=== PATIENT | male | born 1965 | race Caucasian/White ===

== ENCOUNTER 2022-06-01 14:39 | Inpatient (IN) | payer OTHER, BC ==
[~2022-06-01] VITALS: Ht 175.3 cm; Wt 93.2 kg
[2022-06-01 15:14] LABS: BASOPHILS ABSOLUTE AUTO 0.03 K/mm3 (0.00-0.23); BASOPHILS PERCENT AUTO 0 % (0-2); EOSINOPHILS ABSOLUTE AUTO 0.07 K/mm3 (0.00-0.68); EOSINOPHILS PERCENT AUTO 1 % (0-6); Hematocrit 41.1 % (37.0-53.0); Hemoglobin 14.7 g/dL (13.5-17.5); IMMATURE GRAN ABSOLUTE AUTO 0.06 K/mm3 (0.00-0.10); IMMATURE GRAN PERCENT AUTO 0 % (0-1); LYMPHOCYTES ABSOLUTE AUTO 1.36 K/mm3 (0.84-5.20); LYMPHOCYTES PERCENT AUTO 9 % (21-46); MONOCYTES ABSOLUTE AUTO 0.86 K/mm3 (0.16-1.47); MONOCYTES PERCENT AUTO 6 % (4-13); Mean Corpuscular HGB 29.8 pg (26.0-34.0); Mean Corpuscular HGB Conc 35.8 g/dL (31.5-36.5); Mean Corpuscular Volume 83 fL (80-100); Mean Platelet Volume 8.8 fL (9.1-12.4); NEUTROPHILS ABSOLUTE AUTO 12.06 K/mm3 (1.96-9.15); NEUTROPHILS PERCENT AUTO 84 % (41-73); Platelet Count 268 K/mm3 (150-400); RDW Coefficient Variation 12.1 % (11.7-14.2); RDW Standard Deviation 36.9 fL (35.1-46.3); Red Blood Cell Count 4.93 M/mm3 (4.30-5.90); White Blood Cell Count 14.44 K/mm3 (4.00-11.30)
[2022-06-01 15:34] LABS: Albumin, Blood 3.8 g/dL (3.4-5.0); Albumin/Globulin Ratio 1.1 (0.8-1.8); Bilirubin, Total 0.6 mg/dL (0.1-1.0); Bun/Creatinine Ratio 12.8 (12.0-20.0); Creatinine, Blood 0.94 mg/dL (0.60-1.20); Globulin, Blood 3.5 g/dL (2.2-4.0); Potassium, Blood 4.3 mmol/L (3.5-5.5); Total Protein, Blood 7.3 g/dL (6.4-8.2)
[2022-06-01] MEDS ORDERED: LISI20 PO (18:29)
[2022-06-01] MEDS ORDERED: SYNTHROID100 M14 PO (18:30)
[2022-06-01] MEDS ORDERED: CLIN150 PO (18:31)
[2022-06-01] MEDS ORDERED: Flonase 0.05% N16 GM (23:54)
[2022-06-01] MEDS ORDERED: ZYRTEC10 M2 PO (23:54)
[2022-06-01] MEDS ORDERED: PSEU120ER PO (23:55)
--- NOTE | 2022-06-02 02:46 | NUR ---
PATIENT TRANSFER RN TO RN. REPORT TAKEN FROM ELIEL MAI.
[2022-06-02 04:57] LABS: BASOPHILS ABSOLUTE AUTO 0.01 K/mm3 (0.00-0.23); BASOPHILS PERCENT AUTO 0 % (0-2); EOSINOPHILS PERCENT AUTO 0 % (0-6); Hematocrit 38.5 % (37.0-53.0); Hemoglobin 13.8 g/dL (13.5-17.5); IMMATURE GRAN ABSOLUTE AUTO 0.03 K/mm3 (0.00-0.10); IMMATURE GRAN PERCENT AUTO 0 % (0-1); LYMPHOCYTES ABSOLUTE AUTO 0.49 K/mm3 (0.84-5.20); LYMPHOCYTES PERCENT AUTO 5 % (21-46); MONOCYTES ABSOLUTE AUTO 0.18 K/mm3 (0.16-1.47); MONOCYTES PERCENT AUTO 2 % (4-13); Mean Corpuscular HGB Conc 35.8 g/dL (31.5-36.5); Mean Corpuscular Volume 84 fL (80-100); NEUTROPHILS ABSOLUTE AUTO 10.28 K/mm3 (1.96-9.15); NEUTROPHILS PERCENT AUTO 94 % (41-73); Platelet Count 275 K/mm3 (150-400); RDW Coefficient Variation 11.9 % (11.7-14.2); RDW Standard Deviation 35.9 fL (35.1-46.3); White Blood Cell Count 10.99 K/mm3 (4.00-11.30)
--- NOTE | 2022-06-02 05:02 | NUR ---
SHIFT SUMMARY PATIENT HAD NO ACUTE CHANGES. AXOX 4 AND INDEPENDENT IN ROOM. NPO STATUS SINCE MIDNIGHT. PIV REMAINS INTACT. IV ABX INFUSED. ELEVATES RIGHT ARM. DENIES CHEST PAIN, SOB, AND N/V. VSS/AFEBRILE. ABLE TO SLEEP MOST OF THE SHIFT REPORTING NO RIGHT ARM PAIN. COOPERATIVE WITH CARE. CALL LIGHT IN REACH. BED IN LOWEST POSITION. WILL CONTINUE TO MONITOR UNTIL DAY SHIFT NURSE ASSUMES CARE.
[2022-06-02 05:18] LABS: Albumin, Blood 3.1 g/dL (3.4-5.0); Albumin/Globulin Ratio 0.8 (0.8-1.8); Bilirubin, Total 0.4 mg/dL (0.1-1.0); Bun/Creatinine Ratio 17.1 (12.0-20.0); Calcium, Blood 8.8 mg/dL (8.5-10.1); Creatinine, Blood 1.11 mg/dL (0.60-1.20); Globulin, Blood 3.7 g/dL (2.2-4.0); Potassium, Blood 4.1 mmol/L (3.5-5.5); Total Protein, Blood 6.8 g/dL (6.4-8.2)
--- NOTE | 2022-06-02 18:15 | NUR ---
SHIFT SUMMARY PT INDEPENDENT IN THE ROOM FOR RESTROOM USE. STRONG AND STEADY ON HIS FEET. R ELBOW WARM, RED AND SWOLLEN. MEDICATED ONCE WITH TORADOL PER EMAR WITH GOOD RELIEF. PT'S APPETITE IS GOOD. ANTI BIOTICS GIVEN PER EMAR. IS PLEASANT & COOPERATIVE WITH ALL CARE.
--- NOTE | 2022-06-02 22:05 | NUR ---
ASSUMED CARE FROM SERGEI SULLIVAN.
--- NOTE | 2022-06-02 23:26 | NUR ---
NATE MAI TO ASSUME CARE OF PT AGAIN.
--- NOTE | 2022-06-03 07:19 | NUR ---
ALERT AND ORIENTED, ROOM AIR, NO TELE, INDEPENDENT, REGULAR DIET, 20 LEFT AC SL, NO EVENTS OVERNIGHT, TORADOL GIVEN X1 FOR PAIN
[2022-06-03] MEDS ORDERED: DOXY100 PO (10:50)
--- NOTE | 2022-06-03 13:14 | NUR ---
LATE ENTRY/DC HOME 1200: WRITTEN & VERBAL DC INSTRUCTIONS GIVEN TO PT WITH GOOD UNDERSTANDING VERBALIZED. ALL QUESTIONS & CONCERNS ADDRESSED. NEW SCRIPT FAXED TO [facility]. PIV DC'D WITH CATH TIP INTACT, NO REDNESS OR SWELLING NOTED. 1245: PT'S RIDE HERE. PT TO PV VIA W/C WITH ALL PERSONAL BELONGINGS.
== END 2022-06-03 12:33 | disposition home or self-care (01) | DRG 603 ==
LOC: ER 14:39 → MEDS 18:10
PROVIDERS: Physician Assistant; ADMIT Internal Medicine
DX: L03.113 Cellulitis of right upper limb (principal); I10 Essential (primary) hypertension; E03.9 Hypothyroidism, unspecified; M70.31 Other bursitis of elbow, right elbow; Z79.811 Long term (current) use of aromatase inhibitors; Z79.899 Other long term (current) drug therapy
CPT/HCPCS: 36415; 80053; 83605; 85025; 96365; 96366; 96372-59; 96375; 99285-25; A9270; J0690; J1650; J1885; J2930; J3370; J7030; J7050

== ENCOUNTER 2023-10-12 22:50 | Emergency (ER) | payer OTHER, BC ==
[~2023-10-12] VITALS: Ht 175.3 cm; Wt 93.9 kg
[~2023-10-12 22:50] MED LIST: CLIN150 PO; DOXY100 PO; Flonase 0.05% N16 GM; LISI20 PO; PSEU120ER PO; SYNTHROID100 M14 PO; ZYRTEC10 M2 PO
[2023-10-13] MEDS ORDERED: Cephalexin Monohydrate 500 MG Cap PO ONE (00:50)
[2023-10-13 00:59] VITALS: BP 141/98
[2023-10-13] MEDS ORDERED: CEPH500 PO (01:30)
== END 2023-10-13 01:36 | disposition home or self-care (01) ==
LOC: ER 22:50
DX: S81.032A Puncture wound without foreign body, left knee, initial encounter (principal); W26.9XXA Contact with unspecified sharp object(s), initial encounter; Z79.51 Long term (current) use of inhaled steroids; Z79.899 Other long term (current) drug therapy
CPT/HCPCS: 73562-LT; 99283-25; A9270